=== PATIENT | male | born 1950 | race Caucasian/White ===

== ENCOUNTER 2017-11-03 21:38 | Observation (INO) | payer OTHER, MEDICARE ==
[~2017-11-03] VITALS: Ht 167.6 cm; Wt 85.0 kg
[~2017-11-03 21:38] MED LIST: ALBU8I INH; AMLO5 PO; ATOR40TA PO; CIPR500T4 PO; ECOT81TA2 PO; FLUT1SPR9; HYDR10SO PO; METO50TA PO; NITR0.4S SL; OMEP20TA PO; REME30TA PO; STOO100C PO
[2017-11-03 21:43] VITALS: BP 121/64; PULSE 113; RESP 18; TEMP 98.5; O2SAT 96
--- NOTE | 2017-11-03 21:58 | PD ---
HPI Chief Complaint: Chest Pain Time Seen by Provider: 21:57 Travel History International Travel<30 days: No Contact w/Intl Traveler<30days: No Traveled to known affect area: No History of Present Illness HPI 67-year-old male came to the emergency room brought by EMS for cough, palpitations and chest pressure. Patient says that he has had cough for past 2 days. He went to see his primary care yesterday and was diagnosed with bronchial inflammation. He was given albuterol to be used every 6 hours and prednisone. Patient took these medications but his symptoms have not improved. He was getting intermittent chest pressure at the same time. At around 6:30 when he was doing his albuterol breathing treatment he suddenly started to get very anxious, palpitations and chest discomfort worsening. He took one of his nitroglycerin and called 911. EMS gave him a second nitroglycerin. He received 2 baby aspirin's. Currently patient says that his chest pressure is better. He had a temperature of 100.2 earlier in the evening. Patient has significant history of coronary artery disease and has had 3 stents in the past. His last cardiac catheterization was in 2016 which showed 70% lesion which could not be stented and medical management was recommended. Patient takes one nitroglycerin every morning and frequently gets chest pain on a routine basis. [facility] Currently he is chest pain-free. His pain or pressure was mostly his entire chest, no radiation and worsened with albuterol. [facility] Past Medical History Narrative Medical List of his past medical, surgical, social and family history is reviewed from the nursing note. Arthritis: Yes Depression: Yes Heart Rhythm Problems: No Cardiac Catheterization: Yes (stents x 3 ) Cardiovascular Problems: Yes High Cholesterol: Yes Chest Pain: Yes Congestive Heart Failure: No Coronary Artery Disease: Yes Diabetes: No Diminished Hearing: Yes Gastrointestinal Disorders: Yes GERD: Yes Genitourinary: Yes Hiatal Hernia: Yes (UMBILICUS) Hypertension: Yes Implanted Vascular Access Dvce: No Kidney Stones: Yes Neurologic: Yes (VERTIGO) Psychiatric: Yes Immunizations Current: Yes Myocardial Infarction: Yes (X 3) Tetanus Vaccination: < 5 Years Influenza Vaccination: Yes Past Surgical History Arteriovenous Shunt: No Cardiac Surgery: Yes Coronary Artery Bypass Graft: No Coronary Stent: Yes (X3 03/27/09) Genitourinary Surgery: Yes (PROSTATE LASER SURG. URETHERAL DIALITATION FIRST WEEK MARCH 2009.) Neurologic Surgery: No Other Surgery: Yes Family History Family Myocardial Infarction: Yes (mother ) Social History Alcohol Use: Yes (A GLASS OF WINE EVERY 2 WEEKS) Tobacco Use: No (QUIT 30 YEARS AGO) Substance Use: No Allergies-Medications (Allergen,Severity, Reaction): Coded Allergies: amoxicillin (Verified Allergy, Severe, Chest Pain, 11/03/17) clindamycin (Unverified Allergy, Severe, 11/03/17) finasteride (Unverified Allergy, Severe, 11/03/17) terazosin (Unverified Allergy, Severe, 11/03/17) clopidogrel (Unverified Allergy, Unknown, 11/03/17) Comments List of his allergies reviewed from the nursing note. Reported Meds & Prescriptions Reported Meds & Active Scripts Active Reported Nitroglycerin SL (Nitroglycerin) 0.4 Mg Subl 0.4 Mg SL DIRECTED PRN ONE TABLET UNDER THE TONGUE NEEDED FOR CHEST PAIN, MAY REPEAT EVERY FIVE MINUTES FOR A TOTAL OF 3 DOSES OR CALL 911 IF NO RELIEF Hydrocodone-Acetaminophen 10-325 mg Tab 1 Tab PO Q6H PRN Sennosides 8.6 Mg Tab 8.6 Mg PO HS Rosuvastatin (Rosuvastatin Calcium) 20 Mg Tab 20 Mg PO HS Omeprazole 20 Mg Tab 20 Mg PO DAILY Metoprolol Tartrate 50 Mg Tab 50 Mg PO BID Claritin (Loratadine) 10 Mg Cap 10 Mg PO DAILY Isosorbide Mononitrate ER (Isosorbide Mononitrate) 30 Mg Chandu 30 Mg PO DAILY Fluticasone Nasal [place] 50 Mcg/Act Naspr 50 Mcg EACH NARE BID 50 mcg/spray Docusate Sodium 100 Mg Cap 100 Mg PO BID Aspirin EC (Aspirin) 81 Mg Tabdr 81 Mg PO DAILY Norvasc (Amlodipine Besylate) 5 Mg Tab 5 Mg PO DAILY Ventolin Hfa 18 GM Inh (Albuterol Sulfate) 90 Mcg/Act Aer 2 Puff INH Q6H PRN Narrative Medication List of his home medications reviewed from the nursing note. Review of Systems Except as stated in HPI: all other systems reviewed are Neg General / Constitutional: Positive: Fever Cardiovascular: Positive: Chest Pain or Discomfort, Palpitations Respiratory: Positive: Cough Physical Exam Narrative GENERAL: Awake, alert, moderate distress SKIN: Focused skin assessment warm/dry. HEAD: Atraumatic. Normocephalic. EYES: Pupils equal and round. No scleral icterus. No injection or drainage. ENT: No nasal bleeding or discharge. Mucous membranes pink and moist. NECK: Trachea midline. No JVD. CARDIOVASCULAR: Regular rate and rhythm. No murmur appreciated. RESPIRATORY: No accessory muscle use. Clear to auscultation. Breath sounds equal bilaterally. GASTROINTESTINAL: Abdomen soft, non-tender, nondistended. Hepatic and splenic margins not palpable. MUSCULOSKELETAL: No obvious deformities. No clubbing. No cyanosis. No edema. NEUROLOGICAL: Awake and alert. No obvious cranial nerve deficits. Motor grossly within normal limits. Normal speech. PSYCHIATRIC: Appropriate mood and affect; insight and judgment normal. Data Data Last Documented VS Vital Signs Date Time Temp Pulse Resp B/P (MAP) Pulse Ox O2 Delivery O2 Flow Rate FiO2 11/03/17 22:54 92 16 106/51 (69) 99 Room Air 11/03/17 21:43 98.5 Orders Orders Electrocardiogram (11/03/17 22:00) Basic Metabolic Panel (Bmp) (11/03/17 22:00) Ckmb (Isoenzyme) Profile (11/03/17 22:00) Complete Blood Count With Diff (11/03/17 22:00) Magnesium (Mg) (11/03/17 22:00) Prothrombin Time / Inr (Pt) (11/03/17:00) Act Partial Throm Time (Ptt) (11/03/17 22:00) Troponin I (11/03/17 22:00) Chest, Single Ap (11/03/17 22:00) Ecg Monitoring (11/03/17 22:00) Bilateral Bp Monitoring (11/03/17 22:00) Iv Access Insert/Monitor (11/03/17 22:00) Oximetry (11/03/17 22:00) Oxygen Administration (11/03/17 22:00) Sodium Chloride 0.9% Flush (Ns Flush) (11/03/17 22:00) B-Type Natriuretic Peptide (11/03/17 22:47) Sodium Chlor 0.9% 1000 Ml Inj (Ns 1000 M (11/03/17 23:00) CKMB (11/03/17 22:20) CKMB% (11/03/17 22:20) Azithromycin (Zithromax) (11/03/17 23:30) Admit Order (Ed Use Only) (11/03/17 23:35) Labs Laboratory Tests Test 11/03/17 22:20 11/03/17 22:54 White Blood Count 5.7 TH/MM3 Red Blood Count 4.31 MIL/MM3 Hemoglobin 12.8 GM/DL Hematocrit 38.1 % Mean Corpuscular Volume 88.4 FL Mean Corpuscular Hemoglobin 29.7 PG Mean Corpuscular Hemoglobin Concent 33.6 % Red Cell Distribution Width 13.7 % Platelet Count 194 TH/MM3 Mean Platelet Volume 8.7 FL Neutrophils (%) (Auto) 91.9 % Lymphocytes (%) (Auto) 3.9 % Monocytes (%) (Auto) 4.0 % Eosinophils (%) (Auto) 0.0 % Basophils (%) (Auto) 0.2 % Neutrophils # (Auto) 5.2 TH/MM3 Lymphocytes # (Auto) 0.2 TH/MM3 Monocytes # (Auto) 0.2 TH/MM3 Eosinophils # (Auto) 0.0 TH/MM3 Basophils # (Auto) 0.0 TH/MM3 CBC Comment DIFF FINAL Differential Comment Prothrombin Time 10.1 SEC Prothromb Time International Ratio 1.0 RATIO Activated Partial Thromboplast Time 22.5 SEC Blood Urea Nitrogen 26 MG/DL Creatinine 1.39 MG/DL Random Glucose 387 MG/DL Calcium Level 8.5 MG/DL Magnesium Level 2.1 MG/DL Sodium Level 141 MEQ/L Potassium Level 4.2 MEQ/L Chloride Level 110 MEQ/L Carbon Dioxide Level 22.5 MEQ/L Anion Gap 9 MEQ/L Estimat Glomerular Filtration Rate 51 ML/MIN Total Creatine Kinase 179 U/L Creatine Kinase MB 0.7 NG/ML Troponin I LESS THAN 0.02 NG/ML B-Type Natriuretic Peptide 41 PG/ML MDM Medical Decision Making Medical Screen Exam Complete: Yes Emergency Medical Condition: Yes Medical Record Reviewed: Yes Interpretation(s) Twelve-lead EKG was reviewed by me. Normal sinus rhythm, normal axis, tachycardia, nonspecific ST-T wave changes. Heart rate of 106 bpm. Differential Diagnosis Pneumonia, ACS, non-STEMI, CHF Narrative Course 11:57 PM blood test results of back and within acceptable limits. Chest x-ray shows bibasilar atelectasis. However given his symptoms have started him on 500 mg of by mouth Zithromax. Patient has significant coronary artery disease history with current blockages that are being medically managed. I have decided to admit him overnight to rule out ACS. I've explained this to the patient and he understands. His blood sugar was extremely high. Patient says he has been told he is borderline diabetes but he is not on any medications. Him being on the steroid recently could have caused his hypoglycemia but that needs to be repeated at this point. I'm giving him IV fluid bolus as well. I discussed the case with the hospitalist was accepted the patient. Procedures EKG Prior to Arrival: Yes Diagnosis Primary Impression: Bronchitis Additional Impressions: Chest pain Qualified Codes: R07.9 - Chest pain, unspecified Hyperglycemia Cough Admitting Information Admitting Physician Requests: Observation Scripts Azithromycin (Azithromycin) 250 Mg Tab 250 MG PO Q24H for Infection, #3 TAB Prov: Irena Tirado PA-C 11/04/17 Israel Laguerre MD Nov 03, 2017 21:58
[2017-11-03] MEDS ORDERED: SODIUM CHLORIDE 0.9% FLUSH 10 ML FLUSH IVF PRN (22:00)
[2017-11-03 22:26] VITALS: RESP 18
[2017-11-03 22:32] LABS: AUTOMATED NEUTROPHIL # 5.2 TH/MM3 (1.8-7.7); BASOPHIL % 0.2 % (0.0-2.0); HEMATOCRIT 38.1 % (39.0-51.0); HEMOGLOBIN 12.8 GM/DL (13.0-17.0); LYMPH % 3.9 % (9.0-44.0); LYMPHOCYTE # 0.2 TH/MM3 (1.0-4.8); MEAN CELL VOLUME 88.4 FL (80.0-100.0); MEAN CORPUSCULAR HEMOGLOBIN 29.7 PG (27.0-34.0); MEAN CORPUSCULAR HGB CONC 33.6 % (32.0-36.0); MEAN PLATELET VOLUME 8.7 FL (7.0-11.0); MONOCYTE # 0.2 TH/MM3 (0-0.9); NEUT % 91.9 % (16.0-70.0); PLATELET COUNT 194 TH/MM3 (150-450); RED BLOOD COUNT 4.31 MIL/MM3 (4.50-5.90); RED CELL DISTRIBUTION WIDTH 13.7 % (11.6-17.2); WHITE BLOOD COUNT 5.7 TH/MM3 (4.0-11.0)
[2017-11-03 22:54] VITALS: BP 106/51; PULSE 92; RESP 16; O2SAT 99
[2017-11-03 22:54] LABS: BICARBONATE 22.5 MEQ/L (21.0-32.0); BLOOD UREA NITROGEN 26 MG/DL (7-18); CALCIUM 8.5 MG/DL (8.5-10.1); CHLORIDE 110 MEQ/L (98-107); CREATININE 1.39 MG/DL (0.60-1.30); GLOMERULAR FILTRATION RATE 51 ML/MIN (>89); GLUCOSE,RANDOM 387 MG/DL (74-106); MAGNESIUM 2.1 MG/DL (1.5-2.5); SODIUM (NA) 141 MEQ/L (136-145)
--- NOTE | 2017-11-03 22:54 | RADRPT ---
EXAM DATE/TIME: 11/03/2017 22:30 [place] COMPARISON: CHEST SINGLE AP, December 21, 2015, 10:05. INDICATIONS : Chest pain, short of breath. MEDICAL HISTORY : None. SURGICAL HISTORY : None. ENCOUNTER: Initial ACUITY: 1 day PAIN SCORE: 0/10 LOCATION: Bilateral chest FINDINGS: A single view of the chest demonstrates the lungs to be symmetrically aerated without evidence of mas s, infiltrate or effusion. The cardiomediastinal contours are unremarkable. Osseous structures are intact. CONCLUSION: 1. Mild basilar atelectasis. No effusion or pneumothorax. Edil Bhat MD on November 03, 2017 at 22:52 Board Certified Radiologist. This report was verified electronically.
[2017-11-03 22:57] LABS: TROPONIN I LESS THAN 0.02 NG/ML (0.02-0.05)
[2017-11-03 22:58] LABS: PROTHROMBIN TIME - PATIENT 10.1 SEC (9.8-11.6)
[2017-11-03] MEDS ORDERED: SODIUM CHLOR 0.9% 1000 ML INJ 1,000 ML IV ONE (23:00)
[2017-11-03] MEDS ORDERED: AZITHROMYCIN 250 MG TAB PO ONE (23:30)
[2017-11-03] MEDS ORDERED: CLAR10CA3 PO (23:51)
[2017-11-03] MEDS ORDERED: DOCU100C15 PO (23:51)
[2017-11-03] MEDS ORDERED: ROSU1TAB8 PO (23:51)
[2017-11-03] MEDS ORDERED: FLUT50SP EACH NARE (23:51)
[2017-11-03] MEDS ORDERED: HYDR-3583 PO (23:51)
[2017-11-03] MEDS ORDERED: ASPI81TA23 PO (23:51)
[2017-11-03] MEDS ORDERED: METO50TA PO (23:51)
[2017-11-03] MEDS ORDERED: AMLO5 PO (23:51)
[2017-11-03] MEDS ORDERED: OMEP20TA93 PO (23:51)
[2017-11-03] MEDS ORDERED: ISOS30TA3 PO (23:51)
[2017-11-03] MEDS ORDERED: VENTAER INH (23:51)
[2017-11-03] MEDS ORDERED: NITR1SUB3 SL (23:51)
[2017-11-03] MEDS ORDERED: SENN8.6T81 PO (23:51)
[2017-11-04] MEDS ORDERED: ONDANSETRON HCL 4 MG/2 ML VIAL IVP PRN (00:30)
[2017-11-04] MEDS ORDERED: RESP: ALBUTEROL 2.5 MG/IPRATROPIUM 0.5 MG NEB (PRN) NEB (00:30)
[2017-11-04] MEDS ORDERED: ACETAMINOPHEN 325 MG TAB PO PRN (00:30)
[2017-11-04] MEDS ORDERED: SODIUM CHLORIDE 0.9% FLUSH 10 ML FLUSH IV FLUSH PRN (00:30)
[2017-11-04] MEDS ORDERED: DEXTROSE 50% IN WATER 50 ML VIAL(D50) IV PUSH PRN (00:45)
[2017-11-04] MEDS ORDERED: GLUCAGON 1 MG/ML VIAL OTHER PRN (00:45)
[2017-11-04 02:17] VITALS: BP 112/65; PULSE 88; RESP 16; O2SAT 97
[2017-11-04 05:03] LABS: TROPONIN I 0.02 NG/ML (0.02-0.05)
[2017-11-04 05:59] VITALS: BP 107/60; PULSE 86; RESP 16; O2SAT 97
[2017-11-04 07:53] VITALS: BP 112/57
[2017-11-04] MEDS: INSULIN ASPART SUPPLEMENTAL SCALE SQ SCH ×2 (08:00→12:00)
[2017-11-04 08:48] VITALS: BP 132/65; PULSE 73; RESP 16; TEMP 98.1; O2SAT 96
[2017-11-04] MEDS ORDERED: SODIUM CHLORIDE 0.9% FLUSH 10 ML FLUSH IV FLUSH SCH (09:00)
[2017-11-04] MEDS ORDERED: PANTOPRAZOLE SOD 20 MG DELAYED RELEASE TAB PO SCH (09:00)
[2017-11-04] MEDS ORDERED: METOPROLOL TARTRATE 50 MG TAB PO SCH (09:00)
[2017-11-04] MEDS ORDERED: ASPIRIN EC 81 MG TABEC PO SCH (09:00)
[2017-11-04] MEDS ORDERED: amLODIPine BESYLATE 5 MG TAB PO SCH (09:00)
[2017-11-04] MEDS ORDERED: ISOSORBIDE MONONITRATE 30 MG TAB PO SCH (09:00)
[2017-11-04] MEDS ORDERED: DOCUSATE SODIUM 100 MG CAP PO SCH (09:00)
[2017-11-04] MEDS ORDERED: FLUTICASONE PROPIONATE 50 MCG/ACT 16 GM NASAL SPRAY EACH NARE SCH (09:00)
[2017-11-04] MEDS ORDERED: LORATADINE 10 MG TAB PO SCH (09:00)
[2017-11-04] MEDS ORDERED: ACETAMINOPHEN/HYDROcodone 325 MG/10 MG TAB PO PRN (10:00)
[2017-11-04] MEDS ORDERED: SODIUM CHLOR 0.9% 1000 ML INJ 1,000 ML IV SCH (10:00)
--- NOTE | 2017-11-04 10:04 | HHI.HP ---
[facility] Ad[facility] Diagnosis bronchitis, hyperglycemia, chest pain Diagnoses: Chief Complaint: chest pain, cough Travel History International Travel<30 Days: No Contact w/Intl Traveler <30 Da: No Traveled to Known Affected Are: No History of Present Illness Written by Irena Tirado, acting as scribe for Dr. Sullivan on 11/04/17 at 10: 03. 67-year-old male with history of arthritis, depression, CAD with stents x3, HTN , HLD, presents with chest pain and cough. The patient reports he has been having a nonproductive cough, shortness of breath, and fevers at home over the past week. He reports fever at home of 100.2 last night. He saw his PCP on Thursday 11/02 who prescribed an albuterol nebulizer and steroids for acute bronchitis. The patient reports yesterday he was using his albuterol nebulizer when all of sudden he developed chest tightness and palpitations. He took a nitroglycerin and called 911. EMS administered an additional nitroglycerin and the pain went away. He does have history of CAD with recent cardiac catheterization in 2016 showing 70% lesion unable to be stented and therefore he is medically managed. Currently the chest pain has remained resolved overnight. 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 He has no other medical complaints including no shortness of breath, wheezing, abdominal pain, nausea/vomiting, or diarrhea. The patient overall feels much better and wants to go home. Review of Systems Except as stated in HPI: all other systems reviewed are Neg Past Family Social History Past Medical History arthritis depression CAD with stents x3 HTN HLD Past Surgical History Cardiac catheterization with stents x3 Prostate laser surgery Urethral dilatation Reported Medications Nitroglycerin SL (Nitroglycerin) 0.4 Mg Subl 0.4 Mg SL DIRECTED PRN ONE TABLET UNDER THE TONGUE NEEDED FOR CHEST PAIN, MAY REPEAT EVERY FIVE MINUTES FOR A TOTAL OF 3 DOSES OR CALL 911 IF NO RELIEF Hydrocodone-Acetaminophen 10-325 mg Tab 1 Tab PO Q6H PRN Sennosides 8.6 Mg Tab 8.6 Mg PO HS Rosuvastatin (Rosuvastatin Calcium) 20 Mg Tab 20 Mg PO HS Omeprazole 20 Mg Tab 20 Mg PO DAILY Metoprolol Tartrate 50 Mg Tab 50 Mg PO BID Claritin (Loratadine) 10 Mg Cap 10 Mg PO DAILY Isosorbide Mononitrate ER (Isosorbide Mononitrate) 30 Mg Chandu 30 Mg PO DAILY Fluticasone Nasal [place] 50 Mcg/Act Naspr 50 Mcg EACH NARE BID 50 mcg/spray Docusate Sodium 100 Mg Cap 100 Mg PO BID Aspirin EC (Aspirin) 81 Mg Tabdr 81 Mg PO DAILY Norvasc (Amlodipine Besylate) 5 Mg Tab 5 Mg PO DAILY Ventolin Hfa 18 GM Inh (Albuterol Sulfate) 90 Mcg/Act Aer 2 Puff INH Q6H PRN Allergies: Coded Allergies: amoxicillin (Verified Allergy, Severe, Chest Pain, 11/03/17) clindamycin (Unverified Allergy, Severe, 11/03/17) finasteride (Unverified Allergy, Severe, 11/03/17) terazosin (Unverified Allergy, Severe, 11/03/17) clopidogrel (Unverified Allergy, Unknown, 11/03/17) Active Ordered Medications Current Medications Medications (Trade) Dose Ordered Sig/Rafael Route Start Time Stop Time Status Last Admin (NS Flush) 2 ml UNSCH PRN IVF 11/03/17 22:00 (NS Flush) 2 ml UNSCH PRN IV FLUSH 11/04/17 00:30 (NS Flush) 2 ml BID IV FLUSH 11/04/17 09:00 11/04/17 09:51 (Tylenol) 650 mg Q4H PRN PO 11/04/17 00:30 (Zofran Inj) 4 mg Q6H PRN IVP 11/04/17 00:30 (Duoneb Neb) 1 ampule Q4HR NEB PRN NEB 11/04/17 00:30 (D50w (Vial) Inj) 50 ml UNSCH PRN IV PUSH 11/04/17 00:45 (Glucagon Inj) 1 mg UNSCH PRN OTHER 11/04/17 00:45 (NovoLOG SUPPLEMENTAL SCALE) 1 ACHS SLIDING SCALE SQ 11/04/17 08:00 (Norvasc) 5 mg DAILY PO 11/04/17 09:00 11/04/17 09:50 (Ecotrin Ec) 81 mg DAILY PO 11/04/17 09:00 11/04/17 09:51 (Colace) 100 mg BID PO 11/04/17 09:00 (Flonase Power Spr) 1 spray BID EACH NARE 11/04/17 09:00 11/04/17 09:50 (Imdur) 30 mg DAILY PO 11/04/17 09:00 11/04/17 09:50 (Claritin) 10 mg DAILY PO 11/04/17 09:00 11/04/17 09:50 (Lopressor) 50 mg BID PO 11/04/17 09:00 11/04/17 09:50 (Senokot) 8.6 mg HS PO 11/04/17 21:00 (Protonix) 20 mg DAILY PO 11/04/17 09:00 11/04/17 09:50 (Lipitor) 40 mg HS PO 11/04/17 21:00 (Zithromax) 250 mg Q24H PO 11/04/17 23:00 11/08/17 22:59 Sodium Chloride 1,000 ml @ 84 mls/hr [id number] IV 11/04/17 10:00 (Vadito 10-325 Mg) 1 tab Q6H PRN PO 11/04/17 10:00 Family History Family history positive for heart disease. Social History Quit tobacco 30years ago Occasional glass of wine every few weeks Denies any illicit drug use Physical Exam Vital Signs Vital Signs Date Time Temp Pulse Resp B/P (MAP) Pulse Ox O2 Delivery O2 Flow Rate FiO2 11/04/17 08:48 98.1 73 16 132/65 (87) 96 11/04/17 07:53 71 17 112/57 (75) 98 11/04/17 05:59 86 16 107/60 (76) 97 Room Air 11/04/17 02:17 88 16 112/65 (81) 97 Room Air 11/03/17 22:54 92 16 106/51 (69) 99 Room Air 11/03/17 22:26 18 11/03/17 22:26 98 Room Air 11/03/17 21:47 94 Room Air 11/03/17 21:43 98.5 113 18 121/64 (83) 96 Physical Exam GENERAL: Well-nourished, well-developed pleasant male patient in [facility]. SKIN: Warm and dry. No rash. HEAD: Normocephalic. Atraumatic. EYES: Pupils equal and round. No scleral icterus. No injection or drainage. ENT: No nasal bleeding or discharge. Mucous membranes pink and moist. NECK: Supple. Trachea midline. CARDIOVASCULAR: Regular rate and rhythm. S1, S2 noted. No murmur appreciated. RESPIRATORY: No accessory muscle use. Clear to auscultation. No wheezes. Breath sounds equal bilaterally. GASTROINTESTINAL: Abdomen soft, non-tender, nondistended. Normoactive bowel sounds x4. MUSCULOSKELETAL: No obvious deformities. Extremities without clubbing, cyanosis , or edema. NEUROLOGICAL: Awake and alert. No obvious cranial nerve deficits. Motor grossly within normal limits. Normal speech. PSYCHIATRIC: Appropriate mood and affect; insight and judgment normal. Laboratory Laboratory Tests Test 11/03/17 22:20 11/03/17 22:54 11/04/17 04:20 White Blood Count 5.7 Red Blood Count 4.31 Hemoglobin 12.8 Hematocrit 38.1 Mean Corpuscular Volume 88.4 Mean Corpuscular Hemoglobin 29.7 Mean Corpuscular Hemoglobin Concent 33.6 Red Cell Distribution Width 13.7 Platelet Count 194 Mean Platelet Volume 8.7 Neutrophils (%) (Auto) 91.9 Lymphocytes (%) (Auto) 3.9 Monocytes (%) (Auto) 4.0 Eosinophils (%) (Auto) 0.0 Basophils (%) (Auto) 0.2 Neutrophils # (Auto) 5.2 Lymphocytes # (Auto) 0.2 Monocytes # (Auto) 0.2 Eosinophils # (Auto) 0.0 Basophils # (Auto) 0.0 CBC Comment DIFF FINAL Differential Comment Prothrombin Time 10.1 Prothromb Time International Ratio 1.0 Activated Partial Thromboplast Time 22.5 Blood Urea Nitrogen 26 Creatinine 1.39 Random Glucose 387 Calcium Level 8.5 Magnesium Level 2.1 Sodium Level 141 Potassium Level 4.2 Chloride Level 110 Carbon Dioxide Level 22.5 Anion Gap 9 Estimat Glomerular Filtration Rate 51 Total Creatine Kinase 179 188 Creatine Kinase MB 0.7 Troponin I LESS THAN 0.02 0.02 B-Type Natriuretic Peptide 41 Result Diagram: 11/03/17221911/03/172219 Imaging Last Impressions Chest X-Ray 11/03/172199 Signed Impressions: Service Date/Time: Friday, November 03, 2017 22:30 - CONCLUSION: 1. Mild basilar atelectasis. No effusion or pneumothorax. MD Sola Almanzar VTE Risk Assessment Capjenna VTE Risk Assessment: Mod/High Risk (score >= 2) Caprini Risk Assessment Model Point Value = 1 Point Value = 2 Point Value = 3 Point Value = 5 Age 41-60 Minor surgery BMI > 25 kg/m2 Swollen legs Varicose veins or History of unexplained or recurrent spontaneous Oral contraceptives or hormone replacement Sepsis (< 1 month) Serious lung disease, including pneumonia (< 1 month) Abnormal pulmonary function Acute myocardial infarction Congestive heart failure (< 1 month) History of inflammatory bowel disease Medical patient at bed rest Age 61-74 Arthroscopic surgery Major open surgery (> 45 min) Laparoscopic surgery (> 45 min) Malignancy Confined to bed (> 72 hours) Immobilizing plaster cast Central venous access Age >= 75 History of VTE Family history of VTE Factor V Leiden Prothrombin [id number] Lupus anticoagulant Anticardiolipin antibodies Elevated serum homocysteine Heparin-induced thrombocytopenia Other congenital or acquired thrombophilia Stroke (< 1 month) Elective arthroplasty Hip, pelvis, or leg fracture Acute spinal cord injury (< 1 month) Prophylaxis Regimen Total Risk Factor Score Risk Level Prophylaxis Regimen 0-1 Low Early ambulation 2 Moderate Order ONE of the following: *Sequential Compression Device (SCD) *Heparin 5000 units SQ BID 3-4 Higher Order ONE of the following medications: *Heparin 5000 units SQ TID *Enoxaparin/Lovenox 40 mg SQ daily (WT < 150 kg, CrCl > 30 mL/min) *Enoxaparin/Lovenox 30 mg SQ daily (WT < 150 kg, CrCl > 10-29 mL/min) *Enoxaparin/Lovenox 30 mg SQ BID (WT < 150 kg, CrCl > 30 mL/min) AND/OR *Sequential Compression Device (SCD) 5 or more Highest Order ONE of the following medications: *Heparin 5000 units SQ TID (Preferred with Epidurals) *Enoxaparin/Lovenox 40 mg SQ daily (WT < 150 kg, CrCl > 30 mL/min) *Enoxaparin/Lovenox 30 mg SQ daily (WT < 150 kg, CrCl > 10-29 mL/min) *Enoxaparin/Lovenox 30 mg SQ BID (WT < 150 kg, CrCl > 30 mL/min) AND *Sequential Compression Device (SCD) Assessment and Plan Problem List: (1) Chest pain ICD Code: R07.9 - Chest pain, unspecified Status: Acute (2) Bronchitis ICD Code: J40 - Bronchitis, not specified as acute or chronic Status: Acute (3) Hyperglycemia ICD Code: R73.9 - Hyperglycemia, unspecified Status: Acute (4) Cough ICD Code: R05 - Cough Status: Acute Assessment and Plan 67-year-old male with history of arthritis, depression, CAD with stents x3, HTN , HLD, presents with chest pain and cough. Atypical Chest Pain: suspect reaction to albuterol nebulizer in combination with anxiety. With hx of CAD, need to rule out ACS. -First 2 sets of troponins negative, checking 3rd set -EKG reviewed, no acute ischemic changes -Continue patient's aspirin, statin, Imdur, metoprolol -Monitor on telemetry -Avoid albuterol if possible -Chest pain resolved, will likely discharge if 3rd set of cardiac enzymes negative Acute Bronchitis: diagnosed as outpatient. Received 2 days of steroids, symptoms currently improved -will hold off on additional steroids given significantly increased blood glucose and currently no wheezing on exam -continue antibiotics with Azithromycin -outpatient f/up Hyperglycemia: BG 387, suspect secondary to recent steroid use. No hx of diabetes. -discontinue steroids -monitor Accu-Checks and cover with SSI -check HgbA1c -outpatient f/up Acute on Chronic Kidney Disease, stage II: Cr 1.39, previously 1.09 in 2016. -given IVF hydration -repeat BMP HTN/HLD: chronic, stable -continue home meds DVT Prophylaxis: ambulation, patient being discharged today This note was transcribed by allie Tirado,. I, Dr. Nitish Sullivan personally performed the history, physical exam, and medical decision making; and confirmed the accuracy of the information in the transcribed note. Authenticated by Dr. Nitish Sullivan on 11/04/17 at 10:10. Code Status Discharge patient to home if fingerstick less than 200. Fingerstick has been within normal limits 99 and 101 today Condition on discharge: Improved Regular Diet as tolerated [place] activity no driving Rx written: Azithromycin Follow-up with primary care physician and cardiology Discussed Condition With Patient, RN Problem Qualifiers (1) Chest pain: Qualified Codes: R07.9 - Chest pain, unspecified Irena Tirado PA-C Nov 04, 2017 10:04 Nitish Sullivan MD Nov 04, 2017 10:10
[2017-11-04] MEDS ORDERED: AZIT250T3 PO ×2 (10:14→14:16)
[2017-11-04] MEDS ORDERED: RESP: ALBUTEROL 0.63 MG/3 ML NEB (PRN) NEB (10:15)
--- NOTE | 2017-11-04 10:15 | HHI.DCPOC ---
Discharge Care Plan Diagnosis: (1) Bronchitis (2) Chest pain Your Health Problems Are: Difficulty with ADL Exercise Tolerance Goals to Promote Your Health * To prevent worsening of your condition and complications * To maintain your health at the optimal level Directions to Meet Your Goals Take your medications as prescribed Follow your dietary instruction Follow activity as directed Keep your appointments as scheduled Take your immunizations and boosters as scheduled If your symptoms worsen call your PCP, if no PCP go to Urgent Care Center or Emergency Room Smoking is Dangerous to Your Health. Avoid second hand smoke Call the 24-hour hour crisis hotline for domestic abuse at Nitish Sullivan MD Nov 04, 2017 10:15
--- NOTE | 2017-11-04 11:38 | EKG ---
Date Performed: 11/04/2017 Time Performed: 10:53:58 PTAGE: 67 years EKG: Sinus rhythm NONSPECIFIC T-WAVE ABNORMALITY BORDERLINE ECG Since the prior tracing, there has been no significant change DOCTOR: Melody Hernandez Interpretating Date/Time 11/04/2017 11:37:26
--- NOTE | 2017-11-04 12:03 | EKG ---
Date Performed: 11/04/2017 Time Performed: 04:13:04 PTAGE: 67 years EKG: Sinus rhythm NONSPECIFIC T-WAVE ABNORMALITY BORDERLINE ECG PREVIOUS TRACING : 12/22/2015 07.54 Since the prior tracing, there has been no significant galicia DOCTOR: Melody Hernandez Interpretating Date/Time 11/04/2017 12:01:46
--- NOTE | 2017-11-04 12:15 | EKG ---
Date Performed: 11/03/2017 Time Performed: 21:44:56 PTAGE: 67 years EKG: SINUS TACHYCARDIA NONSPECIFIC T-WAVE ABNORMALITY ABNORMAL RHYTHM ECG Compared to prior trac ing, rate faster DOCTOR: Melody Hernandez Interpretating Date/Time 11/04/2017 12:15:35
[2017-11-04 12:26] LABS: BICARBONATE 24.9 MEQ/L (21.0-32.0); CALCIUM 8.2 MG/DL (8.5-10.1); CREATININE 0.9 MG/DL (0.60-1.30)
[2017-11-04 12:27] LABS: TROPONIN I 0.02 NG/ML (0.02-0.05)
[2017-11-04 12:28] VITALS: BP 115/63; PULSE 70; RESP 18; TEMP 98.3; O2SAT 97
[2017-11-04 16:01] LABS: HEMOGLOBIN A1C 6.1 % (4.3-6.0)
[2017-11-04] MEDS ORDERED: SENNOSIDES 8.6 MG TAB PO SCH (21:00)
[2017-11-04] MEDS ORDERED: ATORVASTATIN 40 MG TAB PO SCH (21:00)
[2017-11-04] MEDS ORDERED: AZITHROMYCIN 250 MG TAB PO SCH (23:00)
== END 2017-11-04 10:14 | disposition home or self-care (01) ==
LOC: NEPC 21:38 → NEDA 23:36 → NEDH 11-04 04:49 → NEDA 11-04 08:12 → NEDH 11-04 08:12
PROVIDERS: ADMIT Internal Medicine; ATTEND Internal Medicine
DX: R07.89 Other chest pain (principal); J20.9 Acute bronchitis, unspecified; J98.11 Atelectasis; R73.03 Prediabetes; R00.1 Bradycardia, unspecified; R94.31 Abnormal electrocardiogram [ECG] [EKG]; I25.10 Atherosclerotic heart disease of native coronary artery without angina pectoris; I25.2 Old myocardial infarction; I12.9 Hypertensive chronic kidney disease with stage 1 through stage 4 chronic kidney disease, or unspecified chronic kidney disease; N18.2 Chronic kidney disease, stage 2 (mild); E78.00 Pure hypercholesterolemia, unspecified; R00.2 Palpitations; K21.9 Gastro-esophageal reflux disease without esophagitis; F32.9 Major depressive disorder, single episode, unspecified; F41.9 Anxiety disorder, unspecified; H91.90 Unspecified hearing loss, unspecified ear; M19.90 Unspecified osteoarthritis, unspecified site; Z95.5 Presence of coronary angioplasty implant and graft; Z79.899 Other long term (current) drug therapy; Z79.82 Long term (current) use of aspirin; Z87.891 Personal history of nicotine dependence
CPT/HCPCS: 71045; 80048; 82550; 82552; 82948; 83036; 83735; 83880; 84484; 85025; 85610; 85730; 93005; 96360; 97161; 99285; G0378; G8987; G8988; J7030

== ENCOUNTER 2018-02-16 23:09 | Emergency (ER) | payer OTHER, MEDICARE ==
[~2018-02-16] VITALS: Ht 167.6 cm; Wt 82.0 kg
[~2018-02-16 23:09] MED LIST changes: -ALBU8I INH; +ASPI81TA23 PO; -ATOR40TA PO; +AZIT250T3 PO; -CIPR500T4 PO; +CLAR10CA3 PO; +DOCU100C15 PO; -ECOT81TA2 PO; -FLUT1SPR9; +FLUT50SP EACH NARE; +HYDR-3583 PO; -HYDR10SO PO; +ISOS30TA3 PO; -NITR0.4S SL; +NITR1SUB3 SL; -OMEP20TA PO; +OMEP20TA93 PO; -REME30TA PO; +ROSU1TAB8 PO; +SENN8.6T81 PO; -STOO100C PO; +VENTAER INH
[2018-02-16 23:20] VITALS: BP 136/87; PULSE 86; RESP 16; TEMP 97.7; O2SAT 98
[2018-02-16 23:30] VITALS: BP 140/77; PULSE 79; RESP 18; O2SAT 97
[2018-02-16] MEDS ORDERED: ZOLP5TAB3 PO (23:37)
--- NOTE | 2018-02-16 23:58 | PD ---
HPI Chief Complaint: Medical Clearance Time Seen by Provider: 23:29 Travel History International Travel<30 days: No Contact w/Intl Traveler<30days: No Traveled to known affect area: No History of Present Illness HPI Patient is a 67-year-old male presents emergency department with his for evaluation of sleepiness. Patient states that he normally takes senna and Ambien and the 2 pills look very similar, he states he usually takes a half pill the Ambien at night and 2 pills of the senna, he mistakenly took 2 whole pills of the Ambien tonight approximately an hour prior to arrival. He states he started to feel little bit sleepy but otherwise feels well. No other ingestions, states purely accidental and denies any intent to harm himself. Patient denies any chest pain shortness breath abdominal pain nausea vomiting diarrhea. States symptoms are mild, for the past hour, gradually worsening, associated signs symptoms in context as above. PFSH Past Medical History Arthritis: Yes Depression: Yes Heart Rhythm Problems: No Cardiac Catheterization: Yes (stents x 3 ) Cardiovascular Problems: Yes High Cholesterol: Yes Chest Pain: Yes Congestive Heart Failure: No Coronary Artery Disease: Yes Diabetes: No Diminished Hearing: Yes Gastrointestinal Disorders: Yes GERD: Yes Genitourinary: Yes Hiatal Hernia: Yes (UMBILICUS) Hypertension: Yes Implanted Vascular Access Dvce: No Kidney Stones: Yes Neurologic: Yes (VERTIGO) Psychiatric: Yes Immunizations Current: Yes Migraines: No Myocardial Infarction: Yes (X 3) Tetanus Vaccination: < 5 Years Influenza Vaccination: Yes Past Surgical History Arteriovenous Shunt: No Cardiac Surgery: Yes Coronary Artery Bypass Graft: No Coronary Stent: Yes (X3 03/27/09) Genitourinary Surgery: Yes (PROSTATE LASER SURG. URETHERAL DIALITATION FIRST WEEK MARCH 2009.) Neurologic Surgery: No Other Surgery: Yes Family History Family Myocardial Infarction: Yes (mother ) Social History Alcohol Use: Yes (A GLASS OF WINE EVERY 2 WEEKS) Tobacco Use: No (QUIT 30 YEARS AGO) Substance Use: No Allergies-Medications (Allergen,Severity, Reaction): Coded Allergies: amoxicillin (Verified Allergy, Severe, Chest Pain, 02/16/18) clindamycin (Unverified Allergy, Severe, 02/16/18) finasteride (Unverified Allergy, Severe, 02/16/18) terazosin (Unverified Allergy, Severe, 02/16/18) clopidogrel (Unverified Allergy, Unknown, 02/16/18) Reported Meds & Prescriptions Reported Meds & Active Scripts Active Reported Zolpidem (Zolpidem Tartrate) 5 Mg Tab 5 Mg PO HS PRN Nitroglycerin SL (Nitroglycerin) 0.4 Mg Subl 0.4 Mg SL DIRECTED PRN ONE TABLET UNDER THE TONGUE NEEDED FOR CHEST PAIN, MAY REPEAT EVERY FIVE MINUTES FOR A TOTAL OF 3 DOSES OR CALL 911 IF NO RELIEF Hydrocodone-Acetaminophen 10-325 mg Tab 1 Tab PO Q6H PRN Sennosides 8.6 Mg Tab 8.6 Mg PO HS Rosuvastatin (Rosuvastatin Calcium) 20 Mg Tab 20 Mg PO HS Omeprazole 20 Mg Tab 20 Mg PO DAILY Metoprolol Tartrate 50 Mg Tab 50 Mg PO BID Claritin (Loratadine) 10 Mg Cap 10 Mg PO DAILY Isosorbide Mononitrate ER (Isosorbide Mononitrate) 30 Mg Chandu 30 Mg PO DAILY Fluticasone Nasal [place] 50 Mcg/Act Naspr 50 Mcg EACH NARE BID 50 mcg/spray Docusate Sodium 100 Mg Cap 100 Mg PO BID Aspirin EC (Aspirin) 81 Mg Tabdr 81 Mg PO DAILY Norvasc (Amlodipine Besylate) 5 Mg Tab 5 Mg PO DAILY Ventolin Hfa 18 GM Inh (Albuterol Sulfate) 90 Mcg/Act Aer 2 Puff INH Q6H PRN Review of Systems Except as stated in HPI: all other systems reviewed are Neg Physical Exam Narrative GENERAL: Well-developed well-nourished, no obvious distress. SKIN: Focused skin assessment warm/dry. HEAD: Atraumatic. Normocephalic. EYES: Pupils equal and round. No scleral icterus. No injection or drainage. ENT: No nasal bleeding or discharge. Mucous membranes pink and moist. NECK: Trachea midline. No JVD. CARDIOVASCULAR: Regular rate and rhythm. No murmur appreciated. RESPIRATORY: No accessory muscle use. Clear to auscultation. Breath sounds equal bilaterally. GASTROINTESTINAL: Abdomen soft, non-tender, nondistended. Hepatic and splenic margins not palpable. MUSCULOSKELETAL: No obvious deformities. No clubbing. No cyanosis. No edema. NEUROLOGICAL: Awake and alert. Cranial nerves II through XII grossly intact and nonfocal, 5 out of 5 strength in all 4 extremities. PSYCHIATRIC: Appropriate mood and affect; insight and judgment normal. Data Data Last Documented VS Vital Signs Date Time Temp Pulse Resp B/P (MAP) Pulse Ox O2 Delivery O2 Flow Rate FiO2 02/16/18 23:30 79 18 140/77 (98) 97 Room Air 02/16/18 23:20 97.7 Orders Orders Ecg Monitoring (02/16/18 23:36) Iv Access Insert/Monitor (02/16/18 23:36) Oximetry (02/16/18 23:36) Ed Discharge Order (02/17/18 01:15) MDM Medical Decision Making Medical Screen Exam Complete: Yes Emergency Medical Condition: Yes Differential Diagnosis Ambien overdose, medication reaction, acute life-threatening overdose highly unlikely. Narrative Course Patient room to the emergency department, he appears well in obvious distress. He was observed for 2 hours in the emergency department has had no desaturations , my revisit of him he arouses to verbal states he feels a little weak but otherwise feels fine. His is maintained digital of the bedside and states he has not had any abnormal snoring no gasping for air. Discussed with him at this point that I believe he is stable for discharge. Discussed caution to be used when taking the night medications. Discussed return to ED criteria. Diagnosis Primary Impression: Benzodiazepine overdose Qualified Codes: T42.4X1A - Poisoning by benzodiazepines, accidental ( unintentional), initial encounter Disposition: 01 DISCHARGE HOME Condition: Stable Deon Coronel MD February 16, 2018 23:58
== END 2018-02-17 01:45 | disposition home or self-care (01) ==
LOC: NEPC 23:09
DX: T42.4X1A Poisoning by benzodiazepines, accidental (unintentional), initial encounter (principal); I10 Essential (primary) hypertension; I25.2 Old myocardial infarction; I25.10 Atherosclerotic heart disease of native coronary artery without angina pectoris; E78.00 Pure hypercholesterolemia, unspecified; F32.9 Major depressive disorder, single episode, unspecified; Z87.442 Personal history of urinary calculi; Z95.5 Presence of coronary angioplasty implant and graft; Z88.0 Allergy status to penicillin; Z88.8 Allergy status to other drugs, medicaments and biological substances; Z79.899 Other long term (current) drug therapy
CPT/HCPCS: 99282; 99284